=== PATIENT | male | born 2000 | race American Indian/Alaskan Native ===

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

== ENCOUNTER 2021-02-11 16:06 | Inpatient (IN) | payer MEDICAID ==
--- NOTE | 2021-02-11 18:23 | Emergency Department Report ---
ED Extremity Problem HPI - General Chief complaint: Extremity Injury, Lower Stated complaint: LEG PAINS Time Seen by Provider: 02/11/21 18:07 Source: patient Mode of arrival: Ambulatory Limitations: No Limitations - History of Present Illness Initial comments: Patient is a 21-year-old male presents emergency room complaints of bilateral thigh pain that began yesterday. Patient denies any fall or injury. He states he does frequent walking. He denies any heavy lifting or significant new exercises. He denies any leg swelling, calf pain, pain behind the knee, numbness, weakness. Patient is ambulatory without difficulty. 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 Allergy to vancomycin. Patient states that when he was 15 or 16 years old he had to be admitted at [facility] due to "muscle breakdown." - Related Data Previous Rx's Medication Instructions Recorded Last Taken Type Ibuprofen [Motrin 600 MG tab] 600 mg PO Q8H PRN #14 tablet 03/19/19 Unknown Rx Ibuprofen [Motrin 800 MG tab] 800 mg PO Q8HR PRN #21 tablet 03/23/20 Unknown Rx Allergies Allergy/AdvReac Type Severity Reaction Status Date / Time vancomycin Allergy Itching Verified 02/11/21 17:19 ED Review of Systems ROS: Stated complaint: LEG PAINS Other details as noted in HPI Comment: All other systems reviewed and negative ED Past Medical Hx - Past Medical History Hx Hypertension: No Hx CVA: No Hx Heart Attack/AMI: No Hx Congestive Heart Failure: No Hx Diabetes: No Hx Deep Vein Thrombosis: No Hx Pulmonary Embolism: No Hx GERD: No Hx Liver Disease: No Hx Renal Disease: No Hx Sickle Cell Disease: No Hx Arthritis: No Hx Headaches / Migraines: No Hx Seizures: No Hx Kidney Stones: No Hx Psychiatric Treatment: No Hx Asthma: No Hx COPD: No Hx Tuberculosis: No Hx Dementia: No Hx HIV: No Additional medical history: brain tumor - Surgical History Hx Coronary Stent: No Hx Open Heart Surgery: No Hx Pacemaker: No Hx Internal Defibrillator: No Hx Cholecystectomy: No Hx Appendectomy: No Hx Breast Surgery: No Additional Surgical History: tumor removal - Social History Substance Use Type: None - Medications Home Medications: Home Medications Medication Instructions Recorded Confirmed Last Taken Type Ibuprofen [Motrin 600 MG tab] 600 mg PO Q8H PRN #14 tablet 03/19/19 Unknown Rx Ibuprofen [Motrin 800 MG tab] 800 mg PO Q8HR PRN #21 tablet 03/23/20 Unknown Rx ED Physical Exam - General Limitations: No Limitations General appearance: alert, in no apparent distress - Head Head exam: Present: atraumatic, normocephalic - Eye Eye exam: Present: normal appearance - ENT ENT exam: Present: mucous membranes moist - Extremities Exam Extremities exam: Present: other (bilateral hamstring ttp, no edema of the BLE, no calf ttp, no ttp to the posterior knees, FROM of the BLE, neurovascularly intact, no skin changes) - Neurological Exam Neurological exam: Present: alert, oriented X3 - Psychiatric Psychiatric exam: Present: normal affect, normal mood - Skin Skin exam: Present: warm, dry, intact ED Course Vital Signs 02/11/21 02/11/21 17:22 21:00 Temperature 98.6 F 98.5 F Pulse Rate 88 86 Respiratory 18 18 Rate Blood Pressure 138/78 Blood Pressure 132/79 [Right] O2 Sat by Pulse 97 94 Oximetry - Reevaluation(s) Reevaluation #1: 02/11/21 19:[address] Thomas, ER attending who advised to admit to hospitalist service for elevated Ck - Consultations Consultation #1: 02/11/21 19:[address] Neumann, hospitalist who will accept and resume care of patient, will admit to hospitalist service. ED Medical Decision Making - Lab Data Result diagrams: 02/11/21 18:26 02/11/21 18:26 Lab Results 02/11/21 02/11/21 Range/Units 18:26 18:26 WBC 5.0 (4.5-11.0) K/mm3 RBC 3.82 (3.65-5.03) M/mm3 Hgb 11.6 L (11.8-15.2) gm/dl Hct 34.6 L (35.5-45.6) % MCV 91 (84-94) fl MCH 31 (28-32) pg MCHC 34 (32-34) % RDW 17.1 H (13.2-15.2) % Plt Count 137 L (140-440) K/mm3 Lymph % (Auto) 42.1 H (13.4-35.0) % Gosper % (Auto) 3.7 (0.0-7.3) % Eos % (Auto) 4.2 (0.0-4.3) % Baso % (Auto) 0.5 (0.0-1.8) % Lymph # (Auto) 2.1 (1.2-5.4) K/mm3 Gosper # (Auto) 0.2 (0.0-0.8) K/mm3 Eos # (Auto) 0.2 (0.0-0.4) K/mm3 Baso # (Auto) 0.0 (0.0-0.1) K/mm3 Seg Neutrophils % 49.5 (40.0-70.0) % Seg Neutrophils # 2.5 (1.8-7.7) K/mm3 Sodium 152 H (137-145) mmol/L Potassium 3.5 L (3.6-5.0) mmol/L Chloride 114.4 H (98-107) mmol/L Carbon Dioxide 27 (22-30) mmol/L Anion Gap 14 mmol/L BUN 9 (9-20) mg/dL Creatinine 0.8 (0.8-1.3) mg/dL Estimated GFR > 60 ml/min BUN/Creatinine Ratio 11 % Glucose 80 (75-100) mg/dL Calcium 9.2 (8.4-10.2) mg/dL Total Bilirubin 0.80 (0.1-1.2) mg/dL AST 70 H (5-40) units/L ALT 32 (7-56) units/L Alkaline Phosphatase 200 H (35-129) units/L Total Creatine Kinase 5216 H (55-170) units/L Total Protein 7.3 (6.3-8.2) g/dL Albumin 3.9 (3.9-5) g/dL Albumin/Globulin Ratio 1.1 % - Medical Decision Making Patient is a 21-year-old male presents emergency room complaints of bilateral thigh pain that began yesterday. Patient denies any fall or injury. He states he does frequent walking. He denies any heavy lifting or significant new exercises. He denies any leg swelling, calf pain, pain behind the knee, numbness, weakness. Patient is ambulatory without difficulty. 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 Allergy to vancomycin. Patient states that when he was 15 or 16 years old he had to be admitted at [facility] due to "muscle breakdown." Vitals are stable. On exam:bilateral hamstring ttp, no edema of the BLE, no calf ttp, no ttp to the posterior knees, FROM of the BLE, neurovascularly intact, no skin changes. Labs significant for hypernatremia and elevated CK. Spoke to Dr. Thomas, ER attending who recommended hospitalist admission. spoke to Dr. Neumann, hospitalist who will accept and resume care of patient, will admit to hospitalist service. Spoke to patient who agrees with admission. Critical care attestation.: If time is entered above; I have spent that time in minutes in the direct care of this critically ill patient, excluding procedure time. ED Disposition Clinical Impression: Hypernatremia, Elevated AST (SGOT), Myalgia Rhabdomyolysis Qualifiers: Rhabdomyolysis type: non-traumatic Qualified Code(s): M62.82 - Rhabdomyolysis Disposition: - TO HOME OR SELFCARE Is pt being admited?: Yes Does the pt Need Aspirin: No Condition: Stable
[2021-02-11 18:53] LABS: Basophils % (Auto) 0.5 % (0.0-1.8); Eosinophils # (Auto) 0.2 K/mm3 (0.0-0.4); Eosinophils % (Auto) 4.2 % (0.0-4.3); Hematocrit 34.6 % (35.5-45.6); Hemoglobin 11.6 gm/dl (11.8-15.2); Lymphocytes # (Auto) 2.1 K/mm3 (1.2-5.4); Lymphocytes % (Auto) 42.1 % (13.4-35.0); Mean Corpuscular HGB Conc 34 % (32-34); Mean Corpuscular Volume 91 fl (84-94); Monocytes # (Auto) 0.2 K/mm3 (0.0-0.8); Monocytes % (Auto) 3.7 % (0.0-7.3); Platelet Count 137 K/mm3 (140-440); Red Blood Count 3.82 M/mm3 (3.65-5.03); Red Cell Distribution Width 17.1 % (13.2-15.2)
[2021-02-11 19:00] LABS: Alanine Aminotransferase 32 units/L (7-56); Albumin 3.9 g/dL (3.9-5); BUN/Creatinine Ratio 11; Blood Urea Nitrogen 9 mg/dL (9-20); Calcium 9.2 mg/dL (8.4-10.2); Hemolysis Index 48
--- NOTE | 2021-02-11 20:21 | History and Physical Report ---
History of Present Illness Chief complaint: My legs hurt History of present illness: 21 YO Male with Obesity, DI presents ED for evaluation. Patient reports my legs hurt". Patient states that he has experienced bilateral thigh pain over the past 1 day with persistent symptoms over the same timeframe. Patient knowledges frequent walking. EMS was notified and upon arrival the patient was found to be in distress and subsequent transported to [facility] for further care and evaluation of the aforementioned symptoms. The patient was seen and evaluated in the emergency department. All lab and imaging studies reviewed. Patient found to have lab findings consistent with rhabdomyolysis. Patient admitted to medical floor and treated with IV fluid resuscitation therapy. Patient denies fever, chills, chest pain, palpitation, productive cough, skin rash, recent ill contacts, trauma, or known exposure to COVID-19. No prior admission for review. All medication listed at time of admission has been reconciled. Past History Past Medical History: other (See HPI) Past Surgical History: Other (Brain tumor removal) Social history: single. denies: smoking, alcohol abuse, prescription drug abuse Family history: hypertension Medications and Allergies Allergies Allergy/AdvReac Type Severity Reaction Status Date / Time vancomycin Allergy Itching Verified 02/11/21 17:19 Home Medications Medication Instructions Recorded Confirmed Last Taken Type Ibuprofen [Motrin 600 MG tab] 600 mg PO Q8H PRN #14 tablet 03/19/19 Unknown Rx Ibuprofen [Motrin 800 MG tab] 800 mg PO Q8HR PRN #21 tablet 03/23/20 Unknown Rx Review of Systems Constitutional: other (My legs hurt), no weight loss, no weight gain, no fever, no sweats Ears, nose, mouth and throat: no ear pain, no nose pain Cardiovascular: no chest pain, no rapid/irregular heart beat, no lightheadedness Respiratory: no cough, no excessive sputum, no shortness of breath Gastrointestinal: no abdominal pain, no vomiting, no diarrhea, no hematemesis Genitourinary Male: no hematuria, no discharge, no urinary hesitancy, no nocturia, no erectile dysfunction Rectal: no pain, no incontinence, no bleeding Musculoskeletal: no neck pain, no shooting arm pain, no low back pain, no shooting leg pain Integumentary: no pruritis, no redness, no wounds, no jaundice Neurological: no head injury, no transient paralysis, no parathesias, no tingling, no syncope Psychiatric: no anxiety, no sleep disturbances, no insomnia Endocrine: no cold intolerance, no polyphagia Hematologic/Lymphatic: no lymphadenopathy Allergic/Immunologic: no urticaria, no persistent infections, no anaphylaxis Exam - Constitutional Vitals: Temp Pulse Resp BP Pulse Ox 98.6 F 88 18 138/78 97 02/11/21 17:22 02/11/21 17:22 02/11/21 17:22 02/11/21 17:22 02/11/21 17:22 General appearance: Present: mild distress - EENT Eyes: Present: PERRL ENT: hearing intact, clear oral mucosa - Neck Neck: Present: supple, normal ROM - Respiratory Respiratory effort: normal Respiratory: bilateral: CTA - Cardiovascular Heart Sounds: Present: S1 & S2. Absent: rub, click - Extremities Extremities: pulses symmetrical, No edema Peripheral Pulses: within normal limits - Abdominal General gastrointestinal: Present: soft, non-tender, non-distended, normal bowel sounds Male genitourinary: Present: normal - Integumentary Integumentary: Present: clear, warm, dry - Musculoskeletal Musculoskeletal: gait normal, strength equal bilaterally - Psychiatric Psychiatric: appropriate mood/affect, intact judgment & insight - Neurologic Neurologic: CNII-XII intact, moves all extremities Results - Labs CBC & Chem 7: 02/11/21 18:26 02/11/21 18:26 Labs: Abnormal lab results 02/11/21 02/11/21 Range/Units 18:26 18:26 Hgb 11.6 L (11.8-15.2) gm/dl Hct 34.6 L (35.5-45.6) % RDW 17.1 H (13.2-15.2) % Plt Count 137 L (140-440) K/mm3 Lymph % (Auto) 42.1 H (13.4-35.0) % Sodium 152 H (137-145) mmol/L Potassium 3.5 L (3.6-5.0) mmol/L Chloride 114.4 H (98-107) mmol/L AST 70 H (5-40) units/L Alkaline Phosphatase 200 H (35-129) units/L Total Creatine Kinase 5216 H (55-170) units/L Assessment and Plan - Patient Problems (1) Rhabdomyolysis Current Visit: Yes Status: Acute Qualifiers: Encounter type: initial encounter Plan to address problem: CK level, IV fluid resuscitation therapy, IV bicarbonate therapy, repeat BMP in a.m., to monitor serum creatinine as well as GFR, monitor fluid balance (2) Obesity Current Visit: Yes Status: Acute Qualifiers: Body mass index: BMI 32.0-32.9 Plan to address problem: Balanced diet, increase physical activity at discharge, outpatient pulmonary follow-up for sleep study. (3) DVT prophylaxis Current Visit: Yes Status: Acute Plan to address problem: SCDs bilateral lower extremities while in bed, patient is ambulatory.
[2021-02-11] MEDS ORDERED: ALBUTEROL 2.5 MG/3 ML NEBU IH PRN (20:22)
[2021-02-11] MEDS ORDERED: oxyCODONE /ACETAMINOPHEN 5-325MG TAB PO PRN (20:22)
[2021-02-11] MEDS ORDERED: HYDROmorphone 1 MG/1 ML INJ IV PRN (20:22)
[2021-02-11] MEDS ORDERED: ONDANSETRON 4 MG/2 ML INJ IV PRN (20:22)
[2021-02-11] MEDS ORDERED: ACETAMINOPHEN 325 MG TAB PO PRN (20:22)
[2021-02-11] MEDS ORDERED: SODIUM BICARB 8.4% 50 MEQ/50 ML SYRINGE IV ONE (20:24)
[2021-02-11 20:38] LABS: Bilirubin,Urine NEG (Negative); Blood,Urine SM (Negative); Color,Urine Yellow (Yellow); Protein,Urine <15 mg/dL mg/dL (Negative); Urobilinogen,Urine < 2.0 mg/dL (<2.0)
[2021-02-11 20:57] LABS: Amphetamine Screen,Urine Negative; Benzodiazepines Screen,Urine Negative; Cannabinoid Screen,Urine Negative; Cocaine Screen,Urine Negative; Methadone Screen,Urine Negative; Opiate Screen,Urine Negative
[2021-02-11] MEDS: SODIUM CHLORIDE 0.45% 1000 ML 1,000 ML IV SCH (23:43)
[2021-02-12] MEDS: SODIUM CHLORIDE 0.45% 1000 ML 1,000 ML IV SCH (02:59)
[2021-02-12 07:06] LABS: Alanine Aminotransferase 28 units/L (7-56); Albumin 3.6 g/dL (3.9-5); Blood Urea Nitrogen 9 mg/dL (9-20); Calcium 8.9 mg/dL (8.4-10.2); Hemolysis Index 9
[2021-02-12 07:07] LABS: BUN/Creatinine Ratio 13
[2021-02-12] MEDS: DEXTROSE 5% IN WATER 1,000 ML IV SCH ×2 (12:42→22:20)
--- NOTE | 2021-02-12 15:38 | Progress Note ---
Assessment and Plan (1) Rhabdomyolysis and hyponatremia Current Visit: Yes Status: Acute Qualifiers: Encounter type: initial encounter Plan to address problem: Monitor sodium one CK level, IV fluid resuscitation therapy,repeat BMP in a.m., to monitor serum creatinine as well as GFR, monitor fluid balance (2) Obesity Current Visit: Yes Status: Acute Qualifiers: Body mass index: BMI 32.0-32.9 Plan to address problem: Balanced diet, increase physical activity at discharge, outpatient pulmonary follow-up for sleep study. (3) DVT prophylaxis Current Visit: Yes Status: Acute Plan to address problem: SCDs bilateral lower extremities while in bed, patient is ambulatory. Subjective Date of service: 02/12/21 Objective - Constitutional Vitals: Vital Signs - 12hr 02/12/21 02/12/21 02/12/21 04:27 07:39 11:36 Temperature 97.6 F 98.3 F 98.2 F Pulse Rate 80 89 80 Respiratory 18 18 18 Rate Blood Pressure 103/52 123/83 Blood Pressure 118/61 [Right] O2 Sat by Pulse 99 100 97 Oximetry 02/12/21 12:00 Temperature Pulse Rate Respiratory Rate Blood Pressure Blood Pressure [Right] O2 Sat by Pulse 100 Oximetry - Labs CBC & Chem 7: 02/11/21 18:26 02/12/21 05:57 Labs: Abnormal lab results 02/11/21 02/11/21 02/12/21 Range/Units 18:26 18:26 05:57 Hgb 11.6 L (11.8-15.2) gm/dl Hct 34.6 L (35.5-45.6) % RDW 17.1 H (13.2-15.2) % Plt Count 137 L (140-440) K/mm3 Lymph % (Auto) 42.1 H (13.4-35.0) % Sodium 152 H 155 H (137-145) mmol/L Potassium 3.5 L 3.1 L (3.6-5.0) mmol/L Chloride 114.4 H 115.1 H (98-107) mmol/L Creatinine 0.7 L (0.8-1.3) mg/dL POC Glucose (70-105) mg/dL AST 70 H 64 H (5-40) units/L Alkaline Phosphatase 200 H 195 H (35-129) units/L Total Creatine Kinase 5216 H 5757 H (55-170) units/L Albumin 3.6 L (3.9-5) g/dL 02/12/21 Range/Units 11:07 Hgb (11.8-15.2) gm/dl Hct (35.5-45.6) % RDW (13.2-15.2) % Plt Count (140-440) K/mm3 Lymph % (Auto) (13.4-35.0) % Sodium (137-145) mmol/L Potassium (3.6-5.0) mmol/L Chloride (98-107) mmol/L Creatinine (0.8-1.3) mg/dL POC Glucose 108 H (70-105) mg/dL AST (5-40) units/L Alkaline Phosphatase (35-129) units/L Total Creatine Kinase (55-170) units/L Albumin (3.9-5) g/dL
[2021-02-13 05:07] LABS: BUN/Creatinine Ratio 13; Blood Urea Nitrogen 10 mg/dL (9-20); Calcium 8.7 mg/dL (8.4-10.2); Hemolysis Index 12
[2021-02-13 08:47] VITALS: BP 110/55
--- NOTE | 2021-02-13 14:34 | Progress Note ---
Assessment and Plan (1) Rhabdomyolysis and hyponatremia Current Visit: Yes Status: Acute Qualifiers: Encounter type: initial encounter Plan to address problem: Monitor sodium one CK level, IV fluid resuscitation therapy,repeat BMP in a.m., to monitor serum creatinine as well as GFR, monitor fluid balance (2) Obesity Current Visit: Yes Status: Acute Qualifiers: Body mass index: BMI 32.0-32.9 Plan to address problem: Balanced diet, increase physical activity at discharge, outpatient pulmonary follow-up for sleep study. (3) DVT prophylaxis Current Visit: Yes Status: Acute Plan to address problem: SCDs bilateral lower extremities while in bed, patient is ambulatory. Subjective Date of service: 02/13/21 Objective - Constitutional Vitals: Vital Signs - 12hr 02/13/21 02/13/21 05:32 08:08 Temperature 97.7 F 98.3 F Pulse Rate 71 70 Respiratory 18 18 Rate Blood Pressure 99/46 110/55 O2 Sat by Pulse 97 98 Oximetry - Labs CBC & Chem 7: 02/11/21 18:26 02/13/21 04:05 Labs: Abnormal lab results 02/13/21 02/13/21 02/13/21 Range/Units 04:05 04:05 08:08 Sodium 150 H (137-145) mmol/L Potassium 3.5 L (3.6-5.0) mmol/L Chloride 117.3 H (98-107) mmol/L POC Glucose 370 H (70-105) mg/dL Total Creatine Kinase 6143 H (55-170) units/L
[2021-02-13] MEDS ORDERED: DESMOPRESSIN 4 MCG/ML VIAL SUB-Q SCH (15:00)
== END 2021-02-13 16:00 | disposition left against medical advice (07) | DRG 558 ==
LOC: ED 16:06 → 3B-SURG 20:22
PROVIDERS: ADMIT Internal Medicine; ATTEND Internal Medicine
DX: M62.82 Rhabdomyolysis (principal); E87.0 Hyperosmolality and hypernatremia; Z60.2 Problems related to living alone; E03.9 Hypothyroidism, unspecified; E66.9 Obesity, unspecified; Z68.35 Body mass index [BMI] 35.0-35.9, adult; Z82.49 Family history of ischemic heart disease and other diseases of the circulatory system; Z88.1 Allergy status to other antibiotic agents; Z79.899 Other long term (current) drug therapy
CPT/HCPCS: 36415; 80048; 80053; 80307; 81001; 82550; 82962; 85025; 94760; G0378; J2597; J7030; J7070

== ENCOUNTER 2022-04-03 13:42 | Emergency (ER) | payer MEDICAID, OTHER ==
[2022-04-03 13:55] VITALS: BP 134/83
--- NOTE | 2022-04-03 15:06 | XRay Report ---
CHEST 1 VIEW 04/03/2022 2:13 PM INDICATION / CLINICAL INFORMATION: short of breath. COMPARISON: None available. FINDINGS: SUPPORT DEVICES: None. HEART / MEDIASTINUM: No significant abnormality. LUNGS / PLEURA: No significant pulmonary abnormality. No significant pleural effusion. No pneumothora x. ADDITIONAL FINDINGS: No significant additional findings. IMPRESSION: 1. No acute abnormality of the chest. Signer Name: Rodolfo Ashton MD Signed: 04/03/2022 3:02 PM Workstation Name: [id number]
--- NOTE | 2022-04-03 15:18 | Emergency Department Report ---
Blank Doc - Documentation Documentation: This provider brought patient [place] [facility] [place] to provide care to patient and do assessment. While asking questions to gather more understanding of the ER visit. Patient ask why he in the treatment area and patient informed that he is being seen for his ER visit. patient reports that he would rather wait to be seen later as he was talking to patient in the ER waiting room. patient informed that ER Provider here to provide care. Patient still insisted to wait longer, as he is talking to other patients.
--- NOTE | 2022-04-03 23:00 | Emergency Department Report ---
Minor Respiratory - HPI Chief Complaint: Upper Respiratory Infection Stated Complaint: BLOOD IN SNOT Time Seen by Provider: 04/03/22 20:49 Pain Location: Nose Severity: mild Minor Respiratory: Yes Able to Tolerate Fluids, Yes Cough, No Rhinorrhea, No Sore Throat, No Ear Pain, No Sick Contacts, No Hemoptysis, No Chest Pain, No Shortness of Breath, No Fever Other History: 22-year-old male with a history of brain tumor, asthma, presents with the emergency department with "blood in his snot". Patient describes his snot as "bubbly, nasal congestion, difficulty breathing through his nostrils". He did report subjective fever 2 days ago, dry cough. No wheezing, no shortness of breath, no vomiting abdominal pain, no new or worsening headache, no orthopnea swelling of extremities ED Review of Systems ROS: Stated complaint: BLOOD IN SNOT Other details as noted in HPI Constitutional: fever. denies: chills Eyes: denies: eye discharge, vision change ENT: epistaxis, congestion Respiratory: cough. denies: shortness of breath, wheezing Cardiovascular: denies: chest pain, palpitations Endocrine: denies: excessive sweating, intolerance to cold, intolerance to heat Gastrointestinal: denies: abdominal pain, nausea, vomiting, diarrhea Genitourinary: denies: urgency, frequency Musculoskeletal: denies: back pain, joint swelling, arthralgia Skin: denies: rash, change in color Neurological: headache. denies: weakness, numbness, confusion, abnormal gait Psychiatric: denies: anxiety, auditory hallucinations, visual hallucinations, homicidal thoughts Hematological/Lymphatic: denies: easy bleeding ED Past Medical Hx - Past Medical History Hx Hypertension: No Hx CVA: No Hx Heart Attack/AMI: No Hx Congestive Heart Failure: No Hx Diabetes: No Hx Deep Vein Thrombosis: No Hx Pulmonary Embolism: No Hx GERD: No Hx Liver Disease: No Hx Renal Disease: No Hx Sickle Cell Disease: No Hx Arthritis: No Hx Headaches / Migraines: No Hx Seizures: Yes Hx Kidney Stones: No Hx Psychiatric Treatment: No Hx Asthma: No Hx COPD: No Hx Tuberculosis: No Hx Dementia: No Hx HIV: No Additional medical history: brain tumor - Surgical History Hx Coronary Stent: No Hx Open Heart Surgery: No Hx Pacemaker: No Hx Internal Defibrillator: No Hx Cholecystectomy: No Hx Appendectomy: No Hx Breast Surgery: No Additional Surgical History: tumor removal, R knee - Social History Substance Use Type: None - Medications Home Medications: Home Medications Medication Instructions Recorded Confirmed Last Taken Type Ibuprofen [Motrin 600 MG tab] 600 mg PO Q8H PRN #14 tablet 03/19/19 Unknown Rx Ibuprofen [Motrin 800 MG tab] 800 mg PO Q8HR PRN #21 tablet 03/23/20 Unknown Rx Desmopressin [Ddavp] 0.1 mg PO BID 02/12/21 02/12/21 02/12/21 08:00 History Levothyroxine Sodium 200 mcg PO 02/12/21 02/12/21 08:00 History [Levothyroxine] Levothyroxine [Synthroid] 25 mcg PO QAM 02/12/21 02/12/21 02/12/21 08:00 History Prednisone [Casie] 2 mg PO 02/12/21 02/12/21 08:00 History 2mg PO BID Oxymetazoline HCl [Nasal Mist] 30 ml NS BID PRN #1 bottle 04/03/22 Unknown Rx Minor Respiratory Exam - Exam General: Vital signs noted. No distress. Alert and acting appropriately. HEENT: Yes Moist Mucous Membranes, No Pharyngeal Erythema (Dry crusted nasal secretions, congestion, no bleeding no blood noted in the nares), No Pharyngeal Exudates, No Rhinorrhea, No Conjuctival Injection, No Frontal Tenderness, No Maxillary Tenderness Ear: Neither TM Bulge, Neither TM Erythema, Neither EAC Pain, Neither EAC Discharge Neck: Yes Supple, No Adenopathy Lungs: Yes Good Air Exchange, Yes Cough, No Wheezes, No Ronchi, No Stridor, No Labored Respirations, No Retractions, No Use of Accessory Muscles, No Other Abnormal Lung Sounds Heart: Yes Regular, No Murmur Abdomen: No Tenderness, No Peritoneal Signs, No Normal Bowel Sounds Skin: No Rash, No Edema Neurologic: Alert and oriented, no deficits. Musculoskeletal: Speech is clear, patient answers questions appropriately, moving all extremities symmetrically for ED Course Vital Signs 04/03/22 13:50 Temperature 97.9 F Pulse Rate 94 H Respiratory 18 Rate Blood Pressure 134/83 [Left] O2 Sat by Pulse 99 Oximetry ED Medical Decision Making - Radiology Data Radiology results: report reviewed - Medical Decision Making 22-year-old male with a history of brain tumor, asthma, presents with the emergency department with "blood in his snot". Patient describes his snot as "bubbly, nasal congestion, difficulty breathing through his nostrils". He did report subjective fever 2 days ago, dry cough. No wheezing, no shortness of breath, no vomiting abdominal pain, no new or worsening headache, chest x-ray is clear for any acute infectious process, patient has maintained stable vital signs and stable saturations, Patient has not had any episode of bleeding/bloody snot or nasal drainage throughout his ED course. Patient lacks fevers, no body aches, no chest pain, no red flags on examination, no recent travel. Discharged home with supportive therapy including nasal spray, antitussive combo, and ENT referral. Patient remained stable nontoxic-appearing, afebrile, ambulating steadily without assistance. Gone over ED findings with patient as well as plan for follow-up. Also discussed return precautions with patient, all questions and concerns addressed. Patient is stable to be discharged follow-up outpatient. Audio voice dictation device used, hence the chart might contain some dictation errors, mispronunciations, wrong spelling and wrong verbiage. Critical care attestation.: If time is entered above; I have spent that time in minutes in the direct care of this critically ill patient, excluding procedure time. ED Disposition Clinical Impression: Sinus congestion, Cough Disposition: 01 HOME / SELF CARE / HOMELESS Is pt being admited?: No Does the pt Need Aspirin: No Condition: Stable Instructions: Cool Mist Vaporizer Prescriptions: Oxymetazoline HCl [Nasal Mist] 30 ml NS BID PRN #1 bottle PRN Reason: Nasal Congestion Referrals: PRIMARY MD VASILE [Primary Care Provider] - 3-5 Days SHASHA SMITH MD [Staff Physician] - 3-5 Days
== END 2022-04-03 23:30 | disposition home or self-care (01) ==
LOC: ED 13:42
DX: R09.81 Nasal congestion (principal); R05.9 Cough, unspecified
CPT/HCPCS: 71045; 99283